=== PATIENT | female | born 1990 | race Caucasian/White ===

== ENCOUNTER 2017-05-03 16:48 | Emergency (ER) | payer MEDICAID ==
[~2017-05-03] VITALS: Ht 167.6 cm; Wt 63.5 kg
[2017-05-03 17:07] VITALS: BP_SYST 120
[2017-05-03] MEDS ORDERED: NACL 0.9% 1,000 ML IV ONE (18:54)
[2017-05-03] MEDS ORDERED: ONDANSETRON HCL 4 MG/2 ML VIAL IVP ONE (19:00)
[2017-05-03 19:05] LABS: BASOPHILS % (AUTO) 0.3 % (0.0-2.0); EOSINOPHILS % (AUTO) 0.1 % (0.0-4.0); HEMOGLOBIN 15.1 g/dL (12.0-16.0); LYMPHOCYTES # (AUTO) 1.4 K/uL (1.0-5.5); LYMPHOCYTES % (AUTO) 9.4 % (20.5-51.5); MEAN CORPUSCULAR HEMOGLOBIN 29 pg (27-31); MEAN CORPUSCULAR HGB CONC 33 % (32-36); MEAN CORPUSCULAR VOLUME 89 fL (79.0-98.0); MONOCYTES # (AUTO) 0.5 K/uL (0.0-1.0); MONOCYTES % (AUTO) 3.1 % (1.7-9.3); NEUTROPHILS # (AUTO) 13.4 K/uL (1.8-7.7); NEUTROPHILS % (AUTO) 87.1 % (40.0-70.0); PLATELET COUNT (AUTO) 313 K/uL (130-430); RED BLOOD CELL COUNT(AUTO) 5.19 MIL/uL (4.2-6.2); RED CELL DISTRIBUTION WIDTH 12.3 % (9.0-15.0); WHITE BLOOD COUNT (AUTO) 15.3 K/uL (4.8-10.8)
[2017-05-03 19:09] LABS: CALCIUM 9.4 mg/dL (8.4-11.0); CREATININE 0.77 mg/dL (0.55-1.30); POTASSIUM 3.4 mmol/L (3.5-5.1)
[2017-05-03 19:14] LABS: ALBUMIN 4.4 g/dL (3.4-4.8); TOTAL BILIRUBIN 0.7 mg/dL (0.0-1.0); TOTAL PROTEIN, SERUM 8.7 g/dL (6.4-8.3)
[2017-05-03 19:56] LABS: BILIRUBIN,URINE 1+ (NEGATIVE); BLOOD, URINE 1+ (NEGATIVE); CLARITY/URINE HAZY (CLEAR); COLOR,URINE YELLOW (YELLOW); GLUCOSE,URINE NEGATIVE (NEGATIVE); KETONES,URINE 2+ (NEGATIVE); LEUKOCYTE ESTERASE ,URINE NEGATIVE (NEGATIVE); NITRITE, URINE POSITIVE (NEGATIVE); PROTEIN URINE 2+ (NEGATIVE)
[2017-05-03 20:06] LABS: BACTERIA,URINE MANY /HPF (None Seen); MUCUS,URINE 2+ /LPF (None Seen); URINE AMORPHOUS URATE 3+ /HPF (None Seen)
[2017-05-03 21:53] VITALS: BP_SYST 120
== END 2017-05-03 21:53 | disposition home or self-care (01) ==
LOC: SED 16:48
DX: O21.9 Vomiting of pregnancy, unspecified (principal); F17.210 Nicotine dependence, cigarettes, uncomplicated; Z3A.01 Less than 8 weeks gestation of pregnancy
CPT/HCPCS: 36415; 80053; 81000; 81025; 85025; 87086; 96361; 96374; 99284; J2405; J7030

== ENCOUNTER 2018-01-16 17:36 | Emergency (ER) | payer MEDICAID ==
[~2018-01-16] VITALS: Ht 167.6 cm; Wt 68.0 kg
[2018-01-16 17:51] VITALS: BP_SYST 122
[2018-01-16] MEDS ORDERED: KETOROLAC TROMETHAMINE 60 MG/2 ML VIAL IM ONE (18:00)
[2018-01-16] MEDS ORDERED: MAG HYDROX/AL HYDROX/SIMETH 30 ML, BELLADONNA ALKALOIDS/PHENOBARB 10 ML, LIDOCAINE VISC... PO ONE ×3 (18:00)
[2018-01-16 18:31] LABS: CALCIUM 9.2 mg/dL (8.4-11.0); CREATININE 0.67 mg/dL (0.55-1.30); POTASSIUM 3.6 mmol/L (3.5-5.1)
[2018-01-16 18:37] LABS: ALBUMIN 3.8 g/dL (3.4-4.8); TOTAL BILIRUBIN 0.3 mg/dL (0.0-1.0)
[2018-01-16 18:47] LABS: BASOPHILS % (AUTO) 0.4 % (0.0-2.0); EOSINOPHILS # (AUTO) 0.2 K/uL (0.0-0.4); EOSINOPHILS % (AUTO) 2.1 % (0.0-4.0); HEMATOCRIT 41.9 % (36-48); HEMOGLOBIN 14.1 g/dL (12.0-16.0); LYMPHOCYTES # (AUTO) 3.7 K/uL (1.0-5.5); LYMPHOCYTES % (AUTO) 31.6 % (20.5-51.5); MEAN CORPUSCULAR HEMOGLOBIN 29 pg (27-31); MEAN CORPUSCULAR HGB CONC 34 % (32-36); MEAN CORPUSCULAR VOLUME 87 fL (79.0-98.0); MONOCYTES # (AUTO) 0.7 K/uL (0.0-1.0); MONOCYTES % (AUTO) 5.8 % (1.7-9.3); NEUTROPHILS # (AUTO) 7.2 K/uL (1.8-7.7); NEUTROPHILS % (AUTO) 60.1 % (40.0-70.0); PLATELET COUNT (AUTO) 350 K/uL (130-430); RED BLOOD CELL COUNT(AUTO) 4.79 MIL/uL (4.2-6.2); RED CELL DISTRIBUTION WIDTH 12.8 % (9.0-15.0); WHITE BLOOD COUNT (AUTO) 11.8 K/uL (4.8-10.8)
[2018-01-16 19:16] VITALS: BP_SYST 121
== END 2018-01-16 19:16 | disposition home or self-care (01) ==
LOC: SED 17:36
DX: R10.13 Epigastric pain (principal); R19.7 Diarrhea, unspecified; F17.210 Nicotine dependence, cigarettes, uncomplicated; R03.0 Elevated blood-pressure reading, without diagnosis of hypertension
CPT/HCPCS: 36415; 76700; 80053; 83690; 85025; 96372; 99285; J1885; J2001

== ENCOUNTER 2018-06-25 17:49 | Emergency (ER) | payer MEDICAID ==
[~2018-06-25] VITALS: Ht 167.6 cm; Wt 63.5 kg
[2018-06-25 17:55] VITALS: BP_SYST 133
[2018-06-25] MEDS ORDERED: IPRATROPIUM/ALBUTEROL SULFATE 3 ML AMPUL.NEB INH ONE (18:15)
[2018-06-25 18:42] LABS: BASOPHILS # (AUTO) 0.1 K/uL (0.0-0.2); EOSINOPHILS # (AUTO) 0.2 K/uL (0.0-0.4); MONOCYTES # (AUTO) 0.6 K/uL (0.0-1.0); RED BLOOD CELL COUNT(AUTO) 4.36 MIL/uL (4.2-6.2)
[2018-06-25 18:47] LABS: BASOPHILS % (AUTO) 1.4 % (0.0-2.0); HEMATOCRIT 38.4 % (36-48); HEMOGLOBIN 12.9 g/dL (12.0-16.0); LYMPHOCYTES # (AUTO) 3.3 K/uL (1.0-5.5); LYMPHOCYTES % (AUTO) 33.6 % (20.5-51.5); MEAN CORPUSCULAR HEMOGLOBIN 30 pg (27-31); MEAN CORPUSCULAR HGB CONC 34 % (32-36); MEAN CORPUSCULAR VOLUME 88 fL (79.0-98.0); MONOCYTES % (AUTO) 6.4 % (1.7-9.3); NEUTROPHILS # (AUTO) 5.6 K/uL (1.8-7.7); NEUTROPHILS % (AUTO) 56.6 % (40.0-70.0); PLATELET COUNT (AUTO) 253 K/uL (130-430); RED CELL DISTRIBUTION WIDTH 12.7 % (9.0-15.0); WHITE BLOOD COUNT (AUTO) 9.8 K/uL (4.8-10.8)
[2018-06-25 18:51] LABS: CALCIUM 8.5 mg/dL (8.4-11.0); CREATININE 0.69 mg/dL (0.55-1.30); POTASSIUM 3.8 mmol/L (3.5-5.1)
[2018-06-25 18:53] LABS: PROTHROMBIN TIME 10.4 SECS (9.5-12.5)
[2018-06-25 18:58] LABS: ALBUMIN 3.3 g/dL (3.4-4.8); TOTAL BILIRUBIN 0.2 mg/dL (0.0-1.0)
[2018-06-25 19:26] VITALS: BP_SYST 130
== END 2018-06-25 19:26 | disposition home or self-care (01) ==
LOC: SED 17:49
DX: J40 Bronchitis, not specified as acute or chronic (principal); F17.210 Nicotine dependence, cigarettes, uncomplicated; F12.10 Cannabis abuse, uncomplicated; K21.9 Gastro-esophageal reflux disease without esophagitis; Z71.6 Tobacco abuse counseling
CPT/HCPCS: 36415; 71045; 80053; 81025; 85025; 85379; 85610; 93005; 94640; 99285; J7620